=== PATIENT | male | born 1950 | race Caucasian/White ===

== ENCOUNTER → 2017-05-27 | Outpatient (CLI) | payer OTHER ==
[2017-05-27 13:00] LABS: BLOOD UREA NITROGEN 17 mg/dl (7-18); BUN/CREATININE RATIO 17.4 (10-20); CALCIUM 8.6 mg/dl (8.5-10.1); CARBON DIOXIDE 24 mmol/L (21-32); CHLORIDE 104 mmol/L (98-107); GLUCOSE 112 mg/dl (70-99); POTASSIUM 4.2 mmol/L (3.5-5.1); SODIUM 135 mmol/L (136-145)
[2017-05-27 13:03] LABS: CHOLESTEROL 226 mg/dl (0-200); CHOLESTEROL/HDL RATIO 7.1; HDL CHOLESTEROL 32 mg/dl; TRIGLYCERIDES 610 mg/dl (0-150)
== END | disposition home or self-care (01) ==
LOC: C.LABPVFM 09:00
PROVIDERS: ATTEND Family Medicine
DX: E78.5 Hyperlipidemia, unspecified (principal); I42.2 Other hypertrophic cardiomyopathy

== ENCOUNTER → 2017-08-19 | Outpatient (CLI) | payer OTHER | END | disposition home or self-care (01) | LOC: C.LABPVFM 08:21 | PROVIDERS: ATTEND Family Medicine | DX: E78.1 Pure hyperglyceridemia (principal) ==